=== PATIENT | male | born 1945 | race Caucasian/White ===

== ENCOUNTER 2023-07-21 06:39 | Day surgery (SDC) | payer MEDICARE ==
[2023-07-13 11:06] LABS: BASOPHILS % (AUTO) 0.6 % (0-1); EOSINOPHILS # (AUTO) 0.2 X10'3 (0-0.9); EOSINOPHILS % (AUTO) 3.3 % (0-6); LYMPHOCYTES % (AUTO) 29.4 % (21-51); MEAN CORPUSCULAR HGB CONC 33.4 g/dL (33.0-36.5); MEAN CORPUSCULAR VOLUME 98.7 FL (78-98); MEAN PLATELET VOLUME 10.7 FL (7.4-10.4); MONOCYTES # (AUTO) 0.7 X10'3 (0-0.9); MONOCYTES % (AUTO) 10.9 % (2-12); NEUTROPHILS # (AUTO) 3.8 X10'3 (1.8-7.7); NEUTROPHILS % (AUTO) 55.8 % (42-75); PRE OP HEMATOCRIT 48.7 % (42.0-52.0); PRE OP HEMOGLOBIN 16.3 g/dL (14.0-17.9); PRE OP PLATELET COUNT 177 X10'3 (140-440); PRE OP WHITE BLOOD COUNT 6.8 10'3 (4.8-10.8); RED BLOOD COUNT 4.93 X10'6 (4.70-6.10); RED CELL DISTRIBUTION WIDTH 14.4 % (11.5-14.5)
[2023-07-13 11:07] LABS: BILIRUBIN,URINE NEGATIVE (Neg); CLARITY,URINE SLIGHTLY CLOUDY (Clear); COLOR,URINE YELLOW (Yellow); GLUCOSE, URINE NEGATIVE (Neg); KETONES,URINE NEGATIVE (Neg); LEUKOCYTE ESTERASE ,URINE NEGATIVE (Neg); NITRITES, URINE NEGATIVE (Neg); OCCULT BLOOD,URINE NEGATIVE (Neg); PROTEIN,URINE 30 mg/dl (Neg); UROBILINOGEN,URINE 0.2 E.U/dL (0.2-1.0)
[2023-07-13 11:12] LABS: UA COLLECTION TYPE CLN CATCH MIDSTREAM
[2023-07-13 11:13] LABS: SQUAMOUS EPITHELIAL CELL,UR FEW /LPF (FEW)
[2023-07-13 11:14] LABS: AMORPHOUS PHOSPHATES 3+; BACTERIA,URINE FEW /HPF (Neg); RBC,URINE 0-2 /HPF (0-2); WBC,URINE 0-4 /HPF (0-4)
[2023-07-13 11:34] LABS: ALBUMIN/GLOBULIN RATIO 1.1 (1.1-1.5); ALKALINE PHOSPHATASE 52 IU/L (46-116); BLOOD UREA NITROGEN 17 MG/DL (7-18); BUN/CREATININE RATIO 17.7 (10.0-20.0); CALCIUM 9.4 MG/DL (8.5-10.1); CHLORIDE 104 MMOL/L (99-107); CREATININE 0.96 MG/DL (0.60-1.10); PRE OP ALT 28 U/L (30-65); PRE OP ANION GAP 8 (8-16); PRE OP AST 19 U/L (10-37); PRE OP BILIRUB, TOTAL 0.7 MG/DL (0.0-1.0); PRE OP GLUCOSE 112 MG/DL (70-104); PRE OP POTASSIUM 4.4 MMOL/L (3.4-5.1); PRE OP SODIUM 138 MMOL/L (135-145); TOTAL PROTEIN 7.6 G/DL (6.4-8.2); eGFR 76 ML/MIN
[2023-07-21] VITALS (19 sets, daily range): BP systolic 114–162; BP diastolic 61–89; PULSE 68–100; RESP 15–19; TEMP 97.7; O2SAT 90–100
[~2023-07-21] VITALS: Ht 177.8 cm; Wt 91.2 kg
[~2023-07-21 06:39] MED LIST: BUSP10TA3 PO; CITA10TA22 PO; LOSA25TA41 PO; NAPR1TAB28; OMEP20TA23 PO; cefazolin 2gm/D5W 100mL 100 ML IV ONE; famotidine 20mg tablet PO ONE; ringers solution, lacted 1,000 ML IV SCH
[2023-07-21] MEDS ORDERED: morphine 2 MG/ML inj. syringe IV PRN (10:45)
[2023-07-21] MEDS ORDERED: ringers solution, lacted 1,000 ML IV SCH (10:45)
[2023-07-21] MEDS ORDERED: fentaNYL/PF 50MCG/1 ML 2ML syringe IV PRN ×2 (10:45)
[2023-07-21] MEDS ORDERED: labetalol 20mg/4ml (5mg/ml) syringe IV PRN (10:45)
[2023-07-21] MEDS ORDERED: ondansetron/PF 4mg/2ml inj IV PRN (10:45)
[2023-07-21] MEDS ORDERED: hydrALAZINE 20mg/ml inj. IV PRN (10:45)
[2023-07-21] MEDS ORDERED: morphine 4 MG/ML inj SYRINge IV PRN (10:45)
[2023-07-21] MEDS ORDERED: BUPIVAcaine 2.5mg/ml inj 50ml vial (contains preservative) ONE (11:23)
[2023-07-21] MEDS ORDERED: glycopyrrolate 0.2mg/ml inj ONE (11:30)
[2023-07-21] MEDS ORDERED: desflurane 240ml liquid inh. IH ONE (11:30)
[2023-07-21] MEDS ORDERED: neostigmine methylsulfate 1 MG/ML 10ml vial ONE (11:30)
[2023-07-21] MEDS ORDERED: ePHEDrine 50MG/ML INJ. ONE (11:30)
[2023-07-21] MEDS ORDERED: PHENYLephrine 10mg/ml 5ml injection IV ONE (11:30)
[2023-07-21] MEDS ORDERED: dexamethasone sod phosphate 10mg/ml inj ONE (11:30)
[2023-07-21] MEDS ORDERED: fentaNYL/PF 50MCG/1 ML 2ML syringe ONE ×2 (11:39→13:47)
[2023-07-21] MEDS ORDERED: midazolam 1 mg/ML 2ml injection ONE (11:40)
[2023-07-21] MEDS ORDERED: LIDOcaine 2% (20mg/ml) 5ml vial ONE (11:58)
[2023-07-21] MEDS ORDERED: propofol inj 20 ML IV ONE (11:58)
[2023-07-21] MEDS ORDERED: rocuronium 10mg/ml inj IV ONE ×2 (11:58→13:10)
[2023-07-21] MEDS ORDERED: ondansetron/PF 4mg/2ml inj ONE (11:59)
[2023-07-21] MEDS ORDERED: acetaminophen 1,000mg/100ml IV 100 ML IV ONE (12:02)
[2023-07-21] MEDS ORDERED: BUPIVAcaine 2.5mg/ml inj 50ml vial (contains preservative) IJ ONE (12:46)
[2023-07-21] MEDS ORDERED: sugammadex 200mg/2ml injection IV ONE (12:58)
== END 2023-07-21 16:35 | disposition home or self-care (01) ==
LOC: PAS 06:39
PROVIDERS: ATTEND Surgery
DX: K40.30 Unilateral inguinal hernia, with obstruction, without gangrene, not specified as recurrent (principal); K40.90 Unilateral inguinal hernia, without obstruction or gangrene, not specified as recurrent; I10 Essential (primary) hypertension; K21.9 Gastro-esophageal reflux disease without esophagitis; J44.9 Chronic obstructive pulmonary disease, unspecified; G47.33 Obstructive sleep apnea (adult) (pediatric); Z79.899 Other long term (current) drug therapy; Z90.89 Acquired absence of other organs; Z98.890 Other specified postprocedural states
CPT/HCPCS: 36415; 49505; 49507; 80053; 81001; 82948; 85025; C1781; J0131; J0690; J1100; J2250; J2370; J2405; J2704; J2710; J3010; J3490; J7030; J7120; Z7506; Z7508; Z7512; A4215; A4618; C1758